=== PATIENT | female | born 1945 | race Caucasian/White ===

== ENCOUNTER → 2016-05-15 | Outpatient (CLI) | payer OTHER | LOC: HYPER 07:08 | DX: T81.83XD Persistent postprocedural fistula, subsequent encounter (principal); S31.601 Unspecified open wound of abdominal wall, left upper quadrant with penetration into peritoneal cavity; S91.002D Unspecified open wound, left ankle, subsequent encounter; I87.2 Venous insufficiency (chronic) (peripheral); E66.9 Obesity, unspecified; G89.28 Other chronic postprocedural pain; I25.10 Atherosclerotic heart disease of native coronary artery without angina pectoris; F32.9 Major depressive disorder, single episode, unspecified; E05.90 Thyrotoxicosis, unspecified without thyrotoxic crisis or storm; Y83.8 Other surgical procedures as the cause of abnormal reaction of the patient, or of later complication, without mention of misadventure at the time of the procedure ==

== ENCOUNTER → 2016-06-26 | Outpatient (CLI) | payer OTHER | LOC: HYPER 06-13 07:16 | DX: T81.83XD Persistent postprocedural fistula, subsequent encounter (principal); S81.802D Unspecified open wound, left lower leg, subsequent encounter; E66.9 Obesity, unspecified; I25.84 Coronary atherosclerosis due to calcified coronary lesion; I25.10 Atherosclerotic heart disease of native coronary artery without angina pectoris; E05.90 Thyrotoxicosis, unspecified without thyrotoxic crisis or storm; I87.2 Venous insufficiency (chronic) (peripheral); F32.9 Major depressive disorder, single episode, unspecified; Z90.710 Acquired absence of both cervix and uterus; Z68.35 Body mass index [BMI] 35.0-35.9, adult; Z96.653 Presence of artificial knee joint, bilateral; X58.XXXD Exposure to other specified factors, subsequent encounter; Y83.8 Other surgical procedures as the cause of abnormal reaction of the patient, or of later complication, without mention of misadventure at the time of the procedure ==

== ENCOUNTER → 2016-07-12 | Outpatient (CLI) | payer OTHER | LOC: HYPER 07:18 | DX: T81.83XD Persistent postprocedural fistula, subsequent encounter (principal); S81.802D Unspecified open wound, left lower leg, subsequent encounter; E66.9 Obesity, unspecified; I25.84 Coronary atherosclerosis due to calcified coronary lesion; G89.28 Other chronic postprocedural pain; I25.10 Atherosclerotic heart disease of native coronary artery without angina pectoris; F32.9 Major depressive disorder, single episode, unspecified; E05.90 Thyrotoxicosis, unspecified without thyrotoxic crisis or storm; I87.2 Venous insufficiency (chronic) (peripheral); Z90.710 Acquired absence of both cervix and uterus; Z96.653 Presence of artificial knee joint, bilateral; Z68.35 Body mass index [BMI] 35.0-35.9, adult; Y83.8 Other surgical procedures as the cause of abnormal reaction of the patient, or of later complication, without mention of misadventure at the time of the procedure; X58.XXXD Exposure to other specified factors, subsequent encounter ==

== ENCOUNTER → 2016-07-25 | Outpatient (CLI) | payer OTHER | LOC: HYPER 07:12 | DX: T81.83XD Persistent postprocedural fistula, subsequent encounter (principal); E66.9 Obesity, unspecified; I25.84 Coronary atherosclerosis due to calcified coronary lesion; E05.90 Thyrotoxicosis, unspecified without thyrotoxic crisis or storm; I87.2 Venous insufficiency (chronic) (peripheral); F32.9 Major depressive disorder, single episode, unspecified; Z90.710 Acquired absence of both cervix and uterus; Z96.653 Presence of artificial knee joint, bilateral; Z68.35 Body mass index [BMI] 35.0-35.9, adult ==

== ENCOUNTER → 2016-08-28 | Outpatient (CLI) | payer OTHER | LOC: HYPER 06:58 | DX: T81.83XD Persistent postprocedural fistula, subsequent encounter (principal); E66.9 Obesity, unspecified; I25.84 Coronary atherosclerosis due to calcified coronary lesion; G89.28 Other chronic postprocedural pain; E03.9 Hypothyroidism, unspecified; I87.2 Venous insufficiency (chronic) (peripheral); F03.90 Unspecified dementia, unspecified severity, without behavioral disturbance, psychotic disturbance, mood disturbance, and anxiety; Z90.710 Acquired absence of both cervix and uterus; Z96.653 Presence of artificial knee joint, bilateral; Z68.35 Body mass index [BMI] 35.0-35.9, adult; Y83.8 Other surgical procedures as the cause of abnormal reaction of the patient, or of later complication, without mention of misadventure at the time of the procedure ==

== ENCOUNTER → 2016-09-25 | Outpatient (CLI) | payer OTHER | LOC: HYPER 06:57 | DX: T81.83XD Persistent postprocedural fistula, subsequent encounter (principal); S31.601 Unspecified open wound of abdominal wall, left upper quadrant with penetration into peritoneal cavity; S91.002D Unspecified open wound, left ankle, subsequent encounter; E66.9 Obesity, unspecified; I25.84 Coronary atherosclerosis due to calcified coronary lesion; G89.28 Other chronic postprocedural pain; I25.10 Atherosclerotic heart disease of native coronary artery without angina pectoris; F32.9 Major depressive disorder, single episode, unspecified; R60.9 Edema, unspecified; E05.90 Thyrotoxicosis, unspecified without thyrotoxic crisis or storm; Z90.710 Acquired absence of both cervix and uterus; Y83.8 Other surgical procedures as the cause of abnormal reaction of the patient, or of later complication, without mention of misadventure at the time of the procedure ==

== ENCOUNTER 2016-10-28 16:26 | Emergency (ER) | payer OTHER ==
[~2016-10-28] VITALS: Ht 154.9 cm; Wt 91.2 kg
[2016-10-28 17:33] LABS: ABSOLUTE NEUTROPHILS 6.6 thou/uL (1.4-8.2); BASOPHILS 0.8 % (0.0-2.0); EOSINOPHILS 3.4 % (0.0-3.0); HEMATOCRIT 38.6 % (37.0-47.0); HEMOGLOBIN 13.1 gm/dL (12.0-15.0); LYMPHOCYTES 21.8 % (24.0-44.0); MCH 32.3 pg (26.0-34.0); MCV 94.8 fL (80.0-100.0); MONOCYTES 6.2 % (1.0-8.0); PLATELET COUNT 319 thou/uL (150-400); POLYS 67.8 % (36.0-66.0); RBC 4.07 mil/uL (4.20-5.00); RDW 13.5 % (10.5-14.5); WBC 9.7 thou/uL (4.0-11.0)
[2016-10-28 17:41] LABS: CALCIUM 9.4 mg/dL (8.5-10.1); CREATININE 0.7 mg/dL (0.6-1.0); POTASSIUM 3.8 mmol/L (3.5-5.1)
[2016-10-28 17:42] LABS: MANUAL DIFF NO
[2016-10-28 17:47] LABS: TOTAL BILIRUBIN 0.6 mg/dL (<0.1-1.0); TOTAL PROTEIN 7.3 g/dL (6.4-8.2)
[2016-10-28 20:04] VITALS: BP 148/68
== END 2016-10-28 21:45 ==
LOC: ER 16:26
PROVIDERS: Physician Assistant
DX: G89.18 Other acute postprocedural pain (principal); R10.13 Epigastric pain; J45.909 Unspecified asthma, uncomplicated; G47.30 Sleep apnea, unspecified; Z88.6 Allergy status to analgesic agent; Z88.1 Allergy status to other antibiotic agents; Z88.8 Allergy status to other drugs, medicaments and biological substances; Z88.5 Allergy status to narcotic agent; Z88.2 Allergy status to sulfonamides

== ENCOUNTER 2016-11-23 09:52 | Inpatient (IN) | payer OTHER ==
[~2016-11-23] VITALS: Ht 154.9 cm; Wt 93.9 kg
--- NOTE | ~2016-11-23 | HC ---
[facility] [place] [address] CONSULTATION Name: FAUSTINA LUNA Room #: 440-P ADM IN M.R.#: [id number] Admission: 11/23/16 Attend Phys: Justice Hoffmann MD Discharge: Date of : 43 Report #: [id number] THIS REPORT FOR: //name// CC: JAROD Hoffmann DATE OF SERVICE: 11/23/2016 CHIEF COMPLAINT: Surgical wound to the abdominal wall. 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 She has undergone recent abdominal exploration and surgical takedown of the fistulas. She noted at home yesterday an area of her incision line opened up and a lot of fluid drained and she noted increasing redness and pain and has been admitted for further wound care evaluation. I have been asked to see her in this regard. PAST MEDICAL HISTORY: Positive for history of spinal fusion, right nephrectomy, childhood asthma, previous fundoplication, coronary artery disease status post stenting, and sleep apnea. SOCIAL HISTORY: Negative for alcohol or tobacco use. FAMILY HISTORY: Noncontributory. MEDICATIONS: Include fentanyl patch, Abilify, acidophilus, Adderall, allopurinol, Bactroban, cetirizine, Voltaren gel, Colace, Dulcolax, Fosamax, Synthroid, Mag-Ox, Myrbetriq, MiraLax, OxyContin, Prilosec, Remeron, Strattera, Toprol-XL, and Zantac. REVIEW OF SYSTEMS: CONSTITUTIONAL: The patient does complain of mild fever, denies chills. ENT: The patient denies earache, nasal drainage, or sore throat. CARDIOVASCULAR: The patient denies chest pain, palpitations, or diaphoresis. PULMONARY: The patient denies cough or shortness of breath. GASTROINTESTINAL: The patient denies nausea, vomiting, diarrhea, or abdominal pain. ORTHOPEDIC: The patient denies pain or swelling in extremities. GASTROINTESTINAL: The patient does note separation of her abdominal surgical wound. Other systems are negative in a 12-point review of systems. PHYSICAL EXAMINATION: VITAL SIGNS: At this time include respiratory rate of 22, blood pressure [facility] [address] [place] [address] CONSULTATION Name: FAUSTINA LUNA Room #: 440-P [facility] IN M.R.#: [id number] Admission: 11/23/16 Attend Phys: Justice Hfofmann MD Discharge: Date of : 43 Report #: [id number] 150/79, and temperature of 99.7. GENERAL: This is a chronically ill-appearing , minimal distress. HEENT: Head normocephalic. Nose and throat are clear. NECK: Supple. LUNGS: Clear. HEART: Regular rhythm, without murmur. ABDOMEN: Soft. There is a midline surgical incision. There is a small separation at the distal portion of the incision with surrounding erythema and mild tenderness. There is some serosanguineous drainage. There is a cavity that measures approximately 6.5 x 7 cm internally. No evidence of true dehiscence is noted. NEUROLOGIC: Alert, oriented and appropriate. LABORATORY DATA: Includes white blood cell count is 7.8 with a hemoglobin of 13.3, hematocrit of 39.6. Sodium 139, potassium 3.9, chloride 103, CO2 of 30, BUN 9, creatinine 0.7, glucose 155, and calcium is 9.3. Lactic acid 0.7. CLINICAL IMPRESSION: Surgical wound to the abdominal wall following exploration and takedown of multiple enterocutaneous fistulas, this likely represents a seroma with some mild infection and cellulitis of the abdominal wall. RECOMMENDATIONS: At this point in time, we will pack the area with silver alginate and cover with an ABD, change daily. She will be on appropriate antibiotics. Cultures have been taken at the bedside today. All questions have been answered. I appreciate being asked to have seen her in consultation. <ELECTRONICALLY SIGNED> By: Kevin Babb MD 11/24/16 [phone] Kevin Babb MD /nt
--- NOTE | ~2016-11-23 | HC ---
[facility] [place] [address] CONSULTATION Name: FAUSTINA LUNA Room #: 440-P [facility] IN M.R.#: [id number] Admission: 11/23/16 Attend Phys: Justice Hoffmann MD Discharge: Date of : 43 Report #: [id number] THIS REPORT FOR: //name// CC: JAROD Hoffmann DATE OF SERVICE: 11/23/2016 REASON FOR CONSULTATION: I was asked to evaluate concerning surgical site infection. HISTORY OF PRESENT ILLNESS: The patient is a 71-year-old who has a remote history of small bowel obstruction that was complicated by multiple anterior fistulas. Approximately 4 weeks ago, she underwent complex abdominal wall reconstruction and takedown of multiple fistulas. This was performed at [facility] by Dr. Green. Postoperatively, she has had issues with night sweats and intermittent chills. On 11/22/2016, she presented to the outpatient clinic with increased discomfort with swelling and erythema to her abdominal wall. She was placed on Augmentin. She returned to the Emergency Room today with purulent drainage from her lower abdominal incision. Moderate amount of discomfort. She has been ____. No nausea or vomiting. She is nondiabetic, nonsmoker. ALLERGIES: MULTIPLE INCLUDING ADHESIVE TAPE, ASPIRIN, CARBAMAZEPINE, CIPROFLOXACIN, CISAPRIDE, CLINDAMYCIN, CLOPIDOGREL, CODEINE, DIATRIZOATE, GASTROGRAFIN, DEPAKOTE, DROPERIDOL, MEPERIDINE, REGLAN, METRONIDAZOLE, NONSTEROIDAL ANTI-INFLAMMATORIES, PHENYTOIN, PROCHLORPERAZINE, SULFA, VALPROIC ACID, VANCOMYCIN. MEDICATIONS: As noted on her MAR, now on Zosyn. PAST MEDICAL HISTORY: Anxiety, depression, osteoporosis, hypothyroidism, urinary incontinence, carpal tunnel release, cervical fusion, herniorrhaphy, hysterectomy, joint replacement, lumbar laminectomy, nephrectomy, bilateral total knee arthroplasties, wrist surgeries, above noted surgery. FAMILY HISTORY: Noncontributory. SOCIAL HISTORY: Nonsmoker, no significant alcohol intake. REVIEW OF SYSTEMS: No cough, sputum, nausea, vomiting. No dysuria or frequency. She has had vertigo. PHYSICAL EXAMINATION: VITAL SIGNS: Temperature 99.7, hemodynamically stable, alert and cooperative. Oxygen saturation 100% on room air. [address] [address] CONSULTATION Name: FAUSTINA LUNA Room #: [address] [place] [address] IN M.R.#: [id number] Admission: 11/23/16 Attend Phys: Justice Hoffmann MD Discharge: Date of : 43 Report #: [id number] HEENT: Unremarkable. SKIN: Unremarkable other than abdominal examination. LYMPH: Unremarkable. Moderately obese. LUNGS: Clear. HEART: Regular, without murmur. ABDOMEN: Soft, mildly protuberant, midline abdominal incision with a sinus tract in the lower portion, purulent drainage, surrounding erythema, moderate tenderness. EXTREMITIES: Unremarkable. LABORATORY STUDIES: Lactate 0.7. Sodium 139, potassium 3.9, bicarbonate 30, creatinine 0.7. Blood glucose 155, hemoglobin 13.3, WBC 7.8, platelet count 192,000, 70% segs, 20% lymphs. Abdominal wound culture pending. Blood culture is pending. IMPRESSION: A 71-year-old, now postop approximately 4 weeks from abdominal wall reconstructive surgery, now with surgical site infection. The depth of the infection is yet to be determined. Multiple drug allergies. Recommend further imaging of her abdomen with CAT scan. Continue broad antibiotic coverage with Zosyn pending further culture results. Surgery followup. <ELECTRONICALLY SIGNED> By: Rupert Nix MD 11/24/16 0924 [id number] Rupert Nix MD /nt
[2016-11-23 09:54] VITALS: BP 147/70
[2016-11-23] MEDS ORDERED: FENTANYL PATCH75 MCG TRANSDERM (10:18)
[2016-11-23 10:34] LABS: ABSOLUTE NEUTROPHILS 5.5 thou/uL (1.4-8.2); BASOPHILS 1.1 % (0.0-2.0); HEMATOCRIT 39.6 % (37.0-47.0); HEMOGLOBIN 13.3 gm/dL (12.0-15.0); LYMPHOCYTES 20.1 % (24.0-44.0); MCH 31.5 pg (26.0-34.0); MCHC 33.6 g/dL (28.0-37.0); MONOCYTES 5.9 % (1.0-8.0); PLATELET COUNT 192 thou/uL (150-400); POLYS 70.9 % (36.0-66.0); RBC 4.21 mil/uL (4.20-5.00); RDW 14.1 % (10.5-14.5); WBC 7.8 thou/uL (4.0-11.0)
[2016-11-23 10:38] LABS: MANUAL DIFF NO
[2016-11-23 10:54] LABS: CALCIUM 9.3 mg/dL (8.5-10.1); CREATININE 0.7 mg/dL (0.6-1.0); POTASSIUM 3.9 mmol/L (3.5-5.1)
[2016-11-23] MEDS ORDERED: ABILIFY10 MG PO (10:58)
[2016-11-23] MEDS ORDERED: ACETAMINOPHEN325 M1 PO (10:59)
[2016-11-23] MEDS ORDERED: ACIDOPHILUS CA1 EAC1 PO (11:00)
[2016-11-23] MEDS ORDERED: ADDERALL 15 MG15 MG PO (11:01)
[2016-11-23] MEDS ORDERED: ALLOPURINOL 30300 M1 PO (11:29)
[2016-11-23] MEDS ORDERED: ADDERALL XR 3030 MG PO (11:29)
[2016-11-23] MEDS ORDERED: COLACE100 MG PO (11:30)
[2016-11-23] MEDS ORDERED: BACTROBAN CREAM30 G1 (11:30)
[2016-11-23] MEDS ORDERED: ALL DAY ALLERGY10 M3 PO (11:30)
[2016-11-23] MEDS ORDERED: VOLTAREN GEL 1100 G2 TOP ×2 (11:31→11:32)
[2016-11-23] MEDS ORDERED: SYNTHROID125 MCG PO (11:33)
[2016-11-23] MEDS ORDERED: FOSAMAX 70 MG T70 MG PO (11:33)
[2016-11-23] MEDS ORDERED: BISACODYL SUPP10 MG RECTAL (11:33)
[2016-11-23] MEDS ORDERED: MYRBETRIQ50 MG PO (11:34)
[2016-11-23] MEDS ORDERED: MAGOX 400400 MG PO (11:34)
[2016-11-23] MEDS ORDERED: MIRALAX17 GM PO (11:34)
[2016-11-23] MEDS ORDERED: OXYCONTIN10 M1 PO (11:36)
[2016-11-23] MEDS ORDERED: PRILOSEC 20 MG20 MG PO (11:37)
[2016-11-23] MEDS ORDERED: REMERON15 MG PO (11:38)
[2016-11-23] MEDS ORDERED: PRISTIQ100 MG PO (11:38)
[2016-11-23] MEDS ORDERED: THERAGRAN-M PR1 EAC1 PO (11:39)
[2016-11-23] MEDS ORDERED: STRATTERA80 MG PO (11:39)
[2016-11-23] MEDS ORDERED: TOPROL XL25 MG PO (11:41)
[2016-11-23] MEDS ORDERED: TRAZODONE HCL100 MG PO (11:41)
[2016-11-23 11:42] VITALS: BP 143/61
[2016-11-23] MEDS ORDERED: ZANTAC 150MG T150 MG PO (11:42)
[2016-11-23] MEDS ORDERED: VITAMINC500 PO (11:42)
[2016-11-23] MEDS ORDERED: ONDANSETRON HCL4 M2 PO (11:43)
[2016-11-23 12:45] VITALS: BP 150/79
[2016-11-23 19:18] VITALS: BP 136/63
[2016-11-24 05:08] VITALS: BP 130/58
[2016-11-24 06:12] LABS: HEMATOCRIT 40.1 % (37.0-47.0); HEMOGLOBIN 13.4 gm/dL (12.0-15.0); MCH 31.7 pg (26.0-34.0); MCHC 33.5 g/dL (28.0-37.0); MCV 94.8 fL (80.0-100.0); RBC 4.23 mil/uL (4.20-5.00); RDW 14.2 % (10.5-14.5); WBC 6.6 thou/uL (4.0-11.0)
[2016-11-24 06:34] LABS: CALCIUM 8.8 mg/dL (8.5-10.1); CREATININE 0.7 mg/dL (0.6-1.0); POTASSIUM 4.5 mmol/L (3.5-5.1); TOTAL BILIRUBIN 0.4 mg/dL (<0.1-1.0); TOTAL PROTEIN 6.5 g/dL (6.4-8.2)
[2016-11-24 08:15] VITALS: BP 117/45
[2016-11-24 16:15] VITALS: BP 125/50
[2016-11-24 19:26] VITALS: BP 144/66
[2016-11-25 04:07] VITALS: BP 140/67
[2016-11-25 08:00] VITALS: BP 164/66
[2016-11-25 08:05] VITALS: BP 164/83
[2016-11-25 08:10] VITALS: BP 183/94
[2016-11-25 16:00] VITALS: BP 169/71
[2016-11-25 20:40] VITALS: BP 145/61
[2016-11-26 04:30] VITALS: BP 155/78
[2016-11-26 07:03] VITALS: BP 143/73
[2016-11-26 15:20] LABS: HEMATOCRIT 38.1 % (37.0-47.0); HEMOGLOBIN 13.1 gm/dL (12.0-15.0); MCH 31.9 pg (26.0-34.0); MCHC 34.4 g/dL (28.0-37.0); MCV 92.7 fL (80.0-100.0); RBC 4.11 mil/uL (4.20-5.00); RDW 13.8 % (10.5-14.5); WBC 6.4 thou/uL (4.0-11.0)
[2016-11-26 15:27] LABS: CALCIUM 9.1 mg/dL (8.5-10.1); CREATININE 0.9 mg/dL (0.6-1.0); POTASSIUM 3.3 mmol/L (3.5-5.1)
[2016-11-26 15:43] VITALS: BP 147/60
[2016-11-26 20:05] VITALS: BP 149/68
[2016-11-27 08:00] VITALS: BP 154/81
[2016-11-27 08:18] LABS: HEMATOCRIT 40.4 % (37.0-47.0); HEMOGLOBIN 13.6 gm/dL (12.0-15.0); MCH 31.4 pg (26.0-34.0); MCHC 33.7 g/dL (28.0-37.0); MCV 93.3 fL (80.0-100.0); RBC 4.33 mil/uL (4.20-5.00); RDW 13.7 % (10.5-14.5); WBC 6.2 thou/uL (4.0-11.0)
[2016-11-27 09:02] LABS: CALCIUM 9.6 mg/dL (8.5-10.1); CREATININE 0.8 mg/dL (0.6-1.0); MAGNESIUM 1.7 mg/dL (1.8-2.4); POTASSIUM 3.7 mmol/L (3.5-5.1)
[2016-11-27 16:00] VITALS: BP 178/92
[2016-11-27 20:09] VITALS: BP 138/70
[2016-11-28 05:14] VITALS: BP 180/99
[2016-11-28 05:15] VITALS: BP 172/85
[2016-11-28 05:17] VITALS: BP 164/85
[2016-11-28 08:17] VITALS: BP 169/94
[2016-11-28 15:38] VITALS: BP 170/80
[2016-11-28 19:55] VITALS: BP 146/65
[2016-11-29 05:00] VITALS: BP 147/66
[2016-11-29 08:00] VITALS: BP 153/73
[2016-11-29 10:01] VITALS: BP 153/73
[2016-11-29] MEDS ORDERED: KEFLEX500 MG PO (11:41)
[2016-11-29] MEDS ORDERED: LIDOPATCH1 EACH TRANSDERM (11:47)
[2016-11-29 14:39] VITALS: BP 153/73
== END 2016-11-29 14:17 | disposition home health service (06) | DRG 920 ==
LOC: ER 09:52 → 4S 11:44 → ENTRNSPT 11-29 12:48 → EDTRNSPTSTS 11-29 12:51 → 4S 11-29 14:17
PROVIDERS: Internal Medicine; Physician Assistant
DX: T81.30XA Disruption of wound, unspecified, initial encounter (principal); L03.319 Cellulitis of trunk, unspecified; E44.0 Moderate protein-calorie malnutrition; M96.843 Postprocedural seroma of a musculoskeletal structure following other procedure; K59.00 Constipation, unspecified; Z96.653 Presence of artificial knee joint, bilateral; E03.9 Hypothyroidism, unspecified; M81.0 Age-related osteoporosis without current pathological fracture; F32.9 Major depressive disorder, single episode, unspecified; Z68.39 Body mass index [BMI] 39.0-39.9, adult; F41.9 Anxiety disorder, unspecified; J45.909 Unspecified asthma, uncomplicated; Z90.5 Acquired absence of kidney; Z95.5 Presence of coronary angioplasty implant and graft; Z88.6 Allergy status to analgesic agent; Z88.1 Allergy status to other antibiotic agents; Z88.2 Allergy status to sulfonamides; Z88.8 Allergy status to other drugs, medicaments and biological substances; Z90.710 Acquired absence of both cervix and uterus; Z79.899 Other long term (current) drug therapy; Z82.49 Family history of ischemic heart disease and other diseases of the circulatory system; Z83.3 Family history of diabetes mellitus; Z82.62 Family history of osteoporosis; Y83.8 Other surgical procedures as the cause of abnormal reaction of the patient, or of later complication, without mention of misadventure at the time of the procedure; Y92.89 Other specified places as the place of occurrence of the external cause; D32.9 Benign neoplasm of meninges, unspecified; H81.09 Meniere's disease, unspecified ear
CPT/HCPCS: 10102

== ENCOUNTER → 2016-12-13 | Outpatient (CLI) | payer OTHER ==
[~2016-12-13] MED LIST: ABILIFY10 MG PO; ACETAMINOPHEN325 M1 PO; ACIDOPHILUS CA1 EAC1 PO; ADDERALL 15 MG15 MG PO; ADDERALL XR 3030 MG PO; ALL DAY ALLERGY10 M3 PO; ALLOPURINOL 30300 M1 PO; BACTROBAN CREAM30 G1; BISACODYL SUPP10 MG RECTAL; COLACE100 MG PO; FENTANYL PATCH75 MCG TRANSDERM; FOSAMAX 70 MG T70 MG PO; KEFLEX500 MG PO; LIDOPATCH1 EACH TRANSDERM; MAGOX 400400 MG PO; MIRALAX17 GM PO; MYRBETRIQ50 MG PO; ONDANSETRON HCL4 M2 PO; OXYCONTIN10 M1 PO; PRILOSEC 20 MG20 MG PO; PRISTIQ100 MG PO; REMERON15 MG PO; STRATTERA80 MG PO; SYNTHROID125 MCG PO; THERAGRAN-M PR1 EAC1 PO; TOPROL XL25 MG PO; TRAZODONE HCL100 MG PO; VITAMINC500 PO; VOLTAREN GEL 1100 G2 TOP; ZANTAC 150MG T150 MG PO
== END ==
LOC: HYPER 10-19 06:57
DX: T81.89XA Other complications of procedures, not elsewhere classified, initial encounter (principal); E66.9 Obesity, unspecified; I25.84 Coronary atherosclerosis due to calcified coronary lesion; G89.28 Other chronic postprocedural pain; I25.10 Atherosclerotic heart disease of native coronary artery without angina pectoris; F32.9 Major depressive disorder, single episode, unspecified; I87.2 Venous insufficiency (chronic) (peripheral); Z90.710 Acquired absence of both cervix and uterus; Y83.8 Other surgical procedures as the cause of abnormal reaction of the patient, or of later complication, without mention of misadventure at the time of the procedure

== ENCOUNTER → 2017-03-05 | Outpatient (CLI) | payer OTHER | LOC: HYPER 07:06 | DX: T81.89XD Other complications of procedures, not elsewhere classified, subsequent encounter (principal); E66.9 Obesity, unspecified; I25.84 Coronary atherosclerosis due to calcified coronary lesion; E03.9 Hypothyroidism, unspecified; I87.2 Venous insufficiency (chronic) (peripheral); F32.9 Major depressive disorder, single episode, unspecified; Z90.49 Acquired absence of other specified parts of digestive tract; Z90.710 Acquired absence of both cervix and uterus; Z96.653 Presence of artificial knee joint, bilateral; Z68.36 Body mass index [BMI] 36.0-36.9, adult; Y83.8 Other surgical procedures as the cause of abnormal reaction of the patient, or of later complication, without mention of misadventure at the time of the procedure ==

== ENCOUNTER → 2017-03-29 | Outpatient (CLI) | payer OTHER | LOC: HYPER 03-28 08:18 | DX: T81.89XD Other complications of procedures, not elsewhere classified, subsequent encounter (principal); S61.411A Laceration without foreign body of right hand, initial encounter; E66.9 Obesity, unspecified; I25.84 Coronary atherosclerosis due to calcified coronary lesion; E03.9 Hypothyroidism, unspecified; I87.2 Venous insufficiency (chronic) (peripheral); F32.9 Major depressive disorder, single episode, unspecified; Z90.49 Acquired absence of other specified parts of digestive tract; Z90.710 Acquired absence of both cervix and uterus; Z96.653 Presence of artificial knee joint, bilateral; X58.XXXA Exposure to other specified factors, initial encounter; Y93.89 Activity, other specified; Y92.89 Other specified places as the place of occurrence of the external cause; Y99.8 Other external cause status; Y83.8 Other surgical procedures as the cause of abnormal reaction of the patient, or of later complication, without mention of misadventure at the time of the procedure ==

== ENCOUNTER → 2017-07-25 | Outpatient (CLI) | payer OTHER | LOC: HYPER 04-11 15:23 | DX: T81.89XD Other complications of procedures, not elsewhere classified, subsequent encounter (principal); S81.802D Unspecified open wound, left lower leg, subsequent encounter; E66.9 Obesity, unspecified; G89.28 Other chronic postprocedural pain; I25.84 Coronary atherosclerosis due to calcified coronary lesion; I25.10 Atherosclerotic heart disease of native coronary artery without angina pectoris; F32.9 Major depressive disorder, single episode, unspecified; E05.90 Thyrotoxicosis, unspecified without thyrotoxic crisis or storm; Z68.36 Body mass index [BMI] 36.0-36.9, adult; Z90.710 Acquired absence of both cervix and uterus; Y83.8 Other surgical procedures as the cause of abnormal reaction of the patient, or of later complication, without mention of misadventure at the time of the procedure; X58.XXXD Exposure to other specified factors, subsequent encounter ==

== ENCOUNTER → 2017-08-07 | Outpatient (CLI) | payer OTHER | LOC: HYPER 06:52 | DX: T81.89XD Other complications of procedures, not elsewhere classified, subsequent encounter (principal); S61.402A Unspecified open wound of left hand, initial encounter; L97.821 Non-pressure chronic ulcer of other part of left lower leg limited to breakdown of skin; E66.9 Obesity, unspecified; I25.84 Coronary atherosclerosis due to calcified coronary lesion; G89.28 Other chronic postprocedural pain; Z90.710 Acquired absence of both cervix and uterus; Y83.8 Other surgical procedures as the cause of abnormal reaction of the patient, or of later complication, without mention of misadventure at the time of the procedure; X58.XXXA Exposure to other specified factors, initial encounter; Y93.89 Activity, other specified; Y99.8 Other external cause status; Y92.89 Other specified places as the place of occurrence of the external cause; Z68.36 Body mass index [BMI] 36.0-36.9, adult ==

== ENCOUNTER → 2017-08-21 | Outpatient (CLI) | payer OTHER | LOC: HYPER 06:53 | DX: T81.89XD Other complications of procedures, not elsewhere classified, subsequent encounter (principal); L97.821 Non-pressure chronic ulcer of other part of left lower leg limited to breakdown of skin; S61.402D Unspecified open wound of left hand, subsequent encounter; E66.9 Obesity, unspecified; I25.84 Coronary atherosclerosis due to calcified coronary lesion; G89.28 Other chronic postprocedural pain; I25.10 Atherosclerotic heart disease of native coronary artery without angina pectoris; F32.9 Major depressive disorder, single episode, unspecified; E03.9 Hypothyroidism, unspecified; Z90.710 Acquired absence of both cervix and uterus; X58.XXXD Exposure to other specified factors, subsequent encounter; Y83.8 Other surgical procedures as the cause of abnormal reaction of the patient, or of later complication, without mention of misadventure at the time of the procedure ==

== ENCOUNTER → 2017-09-18 | Outpatient (CLI) | payer OTHER | LOC: HYPER 07:04 | DX: T81.89XD Other complications of procedures, not elsewhere classified, subsequent encounter (principal); S81.802D Unspecified open wound, left lower leg, subsequent encounter; E66.9 Obesity, unspecified; I25.84 Coronary atherosclerosis due to calcified coronary lesion; G89.29 Other chronic pain; I25.10 Atherosclerotic heart disease of native coronary artery without angina pectoris; F32.9 Major depressive disorder, single episode, unspecified; E03.9 Hypothyroidism, unspecified; Z68.36 Body mass index [BMI] 36.0-36.9, adult; Z90.710 Acquired absence of both cervix and uterus; X58.XXXD Exposure to other specified factors, subsequent encounter; Y83.8 Other surgical procedures as the cause of abnormal reaction of the patient, or of later complication, without mention of misadventure at the time of the procedure ==

== ENCOUNTER → 2017-11-29 | Outpatient (CLI) | payer OTHER | LOC: HYPER 07:02 | DX: T81.89XD Other complications of procedures, not elsewhere classified, subsequent encounter (principal); E66.9 Obesity, unspecified; G89.28 Other chronic postprocedural pain; I25.84 Coronary atherosclerosis due to calcified coronary lesion; I87.2 Venous insufficiency (chronic) (peripheral); F32.9 Major depressive disorder, single episode, unspecified; Z68.36 Body mass index [BMI] 36.0-36.9, adult; Z96.653 Presence of artificial knee joint, bilateral; Y83.8 Other surgical procedures as the cause of abnormal reaction of the patient, or of later complication, without mention of misadventure at the time of the procedure ==